=== PATIENT | male | born 1940 | race Caucasian/White ===

== ENCOUNTER → 2017-02-01 | Outpatient (CLI) | payer MEDICARE, OTHER | LOC: US 13:10 | DX: R79.89 Other specified abnormal findings of blood chemistry (principal); I10 Essential (primary) hypertension ==

== ENCOUNTER → 2021-03-17 | Outpatient (CLI) | payer MEDICARE, OTHER | LOC: RAD 08:41 | DX: D72.10 Eosinophilia, unspecified (principal); R91.8 Other nonspecific abnormal finding of lung field | CPT/HCPCS: 71046 ==

== ENCOUNTER → 2021-04-15 | Outpatient (CLI) | payer MEDICARE, OTHER | LOC: CT 09:40 | DX: R91.1 Solitary pulmonary nodule (principal); I71.2 Thoracic aortic aneurysm, without rupture | CPT/HCPCS: 71250 ==

== ENCOUNTER 2021-07-30 22:00 | Inpatient (IN) | payer MEDICARE, OTHER ==
[~2021-07-30] VITALS: Ht 182.9 cm; Wt 90.7 kg
[2021-07-30 22:27] LABS: HEMOGLOBIN 15.2 gm/dl (14.0-17.5); RED BLOOD COUNT 4.89 M/UL (4.20-5.50); WHITE BLOOD COUNT 11.2 K/UL (4.5-11.0)
[2021-07-30 22:56] LABS: BUN/CREATININE RATIO 18 (0-10)
[2021-07-31] MEDS ORDERED: FAMOTIDINE40 MG PO (01:13)
[2021-07-31] MEDS ORDERED: AMLODIPINE BES2.5 MG PO (01:13)
[2021-07-31] MEDS ORDERED: ELIQUIS5 MG PO (01:13)
[2021-07-31] MEDS ORDERED: LEVOTHYROXINE75 MCG PO (01:14)
[2021-07-31] MEDS ORDERED: LOPRESSOR 25 MG25 MG PO (01:14)
[2021-07-31] MEDS ORDERED: HYDROCHLOROTHIA25 MG PO (01:14)
--- NOTE | 2021-07-31 03:39 | NUR ---
0330- PT'S BEDREST IS COMPLETE OF 312. REMOVED THE CONDOM CATHETER AND PLACED URINAL BY PATIENT'S BEDSIDE. PT IS CHANGING POSITIONS IN THE BED. NO BLEEDING OR HEMATOMA NOTED TO THE RIGHT GROIN. PEDAL PULSES ASSESSED IN BOTH THE LEFT AND RIGHT FOOT. NO COMPLAINTS AT THIS TIME.
[2021-07-31 05:06] LABS: HEMOGLOBIN 13.9 gm/dl (14.0-17.5); RED BLOOD COUNT 4.5 M/UL (4.20-5.50); WHITE BLOOD COUNT 11.7 K/UL (4.5-11.0)
[2021-07-31 05:33] LABS: BUN/CREATININE RATIO 21 (0-10)
[2021-07-31 17:36] LABS: BUN/CREATININE RATIO 22 (0-10)
[2021-08-01] MEDS ORDERED: FISH OIL 1,0001 EACH PO (01:15)
[2021-08-01 05:17] LABS: RED BLOOD COUNT 4.15 M/UL (4.20-5.50); WHITE BLOOD COUNT 8.8 K/UL (4.5-11.0)
[2021-08-01 05:43] LABS: BUN/CREATININE RATIO 21 (0-10)
[2021-08-01] MEDS ORDERED: LIPITOR40 MG PO (15:24)
[2021-08-01] MEDS ORDERED: PROAIR HFA8.5 GM INH (15:25)
[2021-08-01] MEDS ORDERED: TRELEGY ELLIPT1 EACH INH (15:26)
[2021-08-02 03:38] LABS: HEMOGLOBIN 12.9 gm/dl (14.0-17.5); RED BLOOD COUNT 4.15 M/UL (4.20-5.50); WHITE BLOOD COUNT 8.3 K/UL (4.5-11.0)
[2021-08-02 03:58] LABS: BUN/CREATININE RATIO 24 (0-10)
[2021-08-03 04:04] LABS: HEMOGLOBIN 13.1 gm/dl (14.0-17.5); RED BLOOD COUNT 4.3 M/UL (4.20-5.50); WHITE BLOOD COUNT 7.4 K/UL (4.5-11.0)
[2021-08-03 04:55] LABS: BUN/CREATININE RATIO 19 (0-10)
[2021-08-03] MEDS ORDERED: NITROGLYCERIN0.4 MG SL (14:39)
[2021-08-03] MEDS ORDERED: BRILINTA 90 MG90 MG PO (14:39)
[2021-08-03] MEDS ORDERED: ASPIRIN EC81 MG PO (15:36)
[2021-08-03] MEDS ORDERED: LISINOPRIL2.5 MG PO (15:44)
[2021-08-03] MEDS ORDERED: METOPROLOL SUCC25 MG PO (15:45)
== END 2021-08-03 16:52 | disposition home or self-care (01) | DRG 247 ==
LOC: ER1 22:00 → PROG CARE 07-31 00:55 → CCU 07-31 00:55 → PROG CARE 08-01 21:10
PROVIDERS: Family Medicine; Internal Medicine; Internal Medicine Cardiovascular Disease; ADMIT Internal Medicine
PROC: 027034Z Dilation of Coronary Artery, One Artery with Drug-eluting Intraluminal Device, Percutaneous Approach (ICD-10-PCS; 2021-07-31)
PROC: B41F1ZZ Fluoroscopy of Right Lower Extremity Arteries using Low Osmolar Contrast (ICD-10-PCS; 2021-07-31)
PROC: B240ZZ3 Ultrasonography of Single Coronary Artery, Intravascular (ICD-10-PCS; 2021-07-31)
PROC: B2111ZZ Fluoroscopy of Multiple Coronary Arteries using Low Osmolar Contrast (ICD-10-PCS; 2021-07-31)
PROC: B24BZZ4 Ultrasonography of Heart with Aorta, Transesophageal (ICD-10-PCS; principal; 2021-08-01)
DX: I21.02 ST elevation (STEMI) myocardial infarction involving left anterior descending coronary artery (principal); T83.518A Infection and inflammatory reaction due to other urinary catheter, initial encounter; I50.22 Chronic systolic (congestive) heart failure; I48.0 Paroxysmal atrial fibrillation; E03.9 Hypothyroidism, unspecified; Z20.822 Contact with and (suspected) exposure to COVID-19; I11.0 Hypertensive heart disease with heart failure; R31.9 Hematuria, unspecified; J44.9 Chronic obstructive pulmonary disease, unspecified; R74.01 Elevation of levels of liver transaminase levels; Y84.6 Urinary catheterization as the cause of abnormal reaction of the patient, or of later complication, without mention of misadventure at the time of the procedure; I25.5 Ischemic cardiomyopathy; E78.5 Hyperlipidemia, unspecified; E80.6 Other disorders of bilirubin metabolism; K21.9 Gastro-esophageal reflux disease without esophagitis; Z85.46 Personal history of malignant neoplasm of prostate; Z79.82 Long term (current) use of aspirin; Z79.899 Other long term (current) drug therapy; Z79.01 Long term (current) use of anticoagulants
CPT/HCPCS: ECHO; 36415; 71045; 76705; 80048; 80053; 80061; 82550; 82553; 82962; 83036; 83615; 83874; 84484; 85025; 85027; 85347; 85610; 85730; 92978; 93005; 93306; 94640; 94664; 94760; 94761; 97116; 97161; 97530; 99152; 99153; 99285; C1725; C1753; C1760; C1769; C1874; C1887; J0461; J1160; J1644; J2250; J2370; J2405; J3010; J7040; Q9965; U0002

== ENCOUNTER → 2021-09-13 | Outpatient (CLI) | payer MEDICARE, OTHER ==
[~2021-09-13] MED LIST: AMLODIPINE BES2.5 MG PO; ASPIRIN EC81 MG PO; BRILINTA 90 MG90 MG PO; ELIQUIS5 MG PO; FAMOTIDINE40 MG PO; FISH OIL 1,0001 EACH PO; HYDROCHLOROTHIA25 MG PO; LEVOTHYROXINE75 MCG PO; LIPITOR40 MG PO; LISINOPRIL2.5 MG PO; LOPRESSOR 25 MG25 MG PO; METOPROLOL SUCC25 MG PO; NITROGLYCERIN0.4 MG SL; PROAIR HFA8.5 GM INH; TRELEGY ELLIPT1 EACH INH
== END ==
LOC: KOH-I 09:04
DX: M25.50 Pain in unspecified joint (principal); M19.032 Primary osteoarthritis, left wrist; M19.042 Primary osteoarthritis, left hand
CPT/HCPCS: 73110; 73130

== ENCOUNTER → 2021-09-14 | Outpatient (CLI) | payer MEDICARE, OTHER | LOC: HEART 5 09:35 | DX: I25.5 Ischemic cardiomyopathy (principal) | CPT/HCPCS: 93306 ==

== ENCOUNTER → 2021-10-31 | Outpatient (CLI) | payer MEDICARE, OTHER | LOC: KOH-I 09:43 | DX: R91.1 Solitary pulmonary nodule (principal); R91.8 Other nonspecific abnormal finding of lung field; I71.2 Thoracic aortic aneurysm, without rupture | CPT/HCPCS: 71250 ==

== ENCOUNTER → 2022-03-20 | Outpatient (CLI) | payer MEDICARE, OTHER | LOC: EXRD 13:30 | DX: M79.89 Other specified soft tissue disorders (principal); R60.0 Localized edema | CPT/HCPCS: 93971 ==